=== PATIENT | female | born 1960 | race Caucasian/White ===

== ENCOUNTER 2024-10-17 12:32 | Emergency (ER) | payer BC, SELFPAY ==
[2024-10-17 12:35] VITALS: BP 168/98
--- NOTE | 2024-10-17 13:29 | ED.GENMED ---
History of Present Illness
General
Chief Complaint: Eye Problems
Source: patient
Exam Limitations: none
Time Seen by Provider: 10/17/24 13:13
History of Present Illness
History of Present Illness:
64-year-old female presents with painless redness to the white part of her eye starting Wednesday getting worse. She states it spread. She was seen by the family doctor at the onset of her symptoms on Wednesday, 4 days ago. Family doctor told her to
come in and the symptoms worsen. She denies headache or vision change. She is not anticoagulated. No known trauma. No other
Past History
Past History
ED Past Medical History: GERD and HTN
ED Past Surgical History: None
Social History
Tobacco: Non-smoker
Alcohol: Occasional
Drug: Marijuana (Occasional use, denies any recent use.)
Personal:
Living: with family
Employment: Employed
Phy Exam
Physical Exam
Physical Exam:
General: Well-appearing nontoxic female no acute respiratory distress
HEENT: Normocephalic atraumatic
Eye exam: Right eye examined with fluorescein stain and [place] lamp there is evidence of subconjunctival hemorrhage over the lateral sclera. Anterior chambers clear. Pupils are equal round reactive to light. There is no scratch on the surface of
the eye. The eye has good motion and is painless.
Skin: Surrounding skin is without erythema
Course
Vital Signs
Initial and Last Documented VS:
Initial Vital Signs
Temp Pulse Resp BP Pulse Ox
98.2 F 92 16 168/98 100
10/17/24 12:35 10/17/24 12:35 10/17/24 12:35 10/17/24 12:35 10/17/24 12:35
Last Documented Vital Signs
Temp Pulse Resp BP Pulse Ox
98.2 F 92 16 168/98 100
10/17/24 12:35 10/17/24 12:35 10/17/24 12:35 12 12:35 12 12:35
MDM/Problems Addressed
Differential Diagnosis Includes:
Patient with erythema to the right eye. Exam most consistent with subconjunctival hemorrhage. There is no sign of abrasion to the surface of the eye. No sign of hyphema. This is a painless issue. Do not suspect glaucoma given lack of pain.
No indication for any imaging at this time. Reassured patient recommended rewetting drops if needed. Stable for discharge
*Critical Care Note
Total Time (30-74mins, 75-104mins- exclusive of procedures): Not Applicable
ED Attending Note
-
Portions of this chart may have been created with voice recognition software.� Occasional wrong word or��sound alike� substitutions may have occurred due to the inherent limitations of voice recognition software.
Discharge Plan
Departure
Patient Disposition: Home (Routine Discharge)
Date of Disposition: 10/17/24
Time of Disposition: 13:32
Patient with high blood pressure during this ER visit?: No
Discharge Problem:
Subconjunctival bleed
Prescriptions:
No Action
metoclopramide HCl 10 MG tablet
10 mg PO QID PRN (Reason: nausea) Qty: 12 0RF
metoclopramide HCl 10 MG tablet
10 mg PO R QIDPRN PRN (Reason: nausea/vomiting) Qty: 20 0RF
Referrals:
UNKNOWN - PT DOES,NOT KNOW [Family Provider] -
Activity Restrictions/Additional Instructions:
Use rewetting drops if needed. Return here for increasing pain or vision change. Follow-up with your eye doctor otherwise
Interventions
Interventions:
*Risk Screen - Suicide Last Done: 10/17/24 12:35
*Neglect/Abuse Screening Last Done: 10/17/24 12:35
Discharge Date and Time
Print Language: CONGOLESE
== END 2024-10-17 14:47 | disposition home or self-care (01) ==
LOC: EMR 12:32
PROVIDERS: EMERGENCY PHYSICIAN Emergency Medicine
DX: H11.31 Conjunctival hemorrhage, right eye (principal); F12.90 Cannabis use, unspecified, uncomplicated
CPT/HCPCS: 99283